=== PATIENT | female | born 1985 | race Hispanic/Latino ===

== ENCOUNTER 2019-06-08 19:30 | Inpatient (IN) | payer BC, OTHER ==
--- NOTE | 2019-06-08 13:26 | PDOC.LDHP ---
Labor and Delivery H&P Chief complaint: scheduled induction HPI: 34 yo @ 39w3d by 8 week CRL who presents for IOL due to AMA. Pt has mild anemia, otherwise benign antepartum course. Current gestational age (weeks): 39 Dating criteria: first trimester ultrasound Grav: 2 Para: 1 Abnormal US findings: No Current medications: pre-kalin vitamins Previous surgical history: none Allergies/Adverse Reactions: Allergies Allergy/AdvReac Type Severity Reaction Status Date / Time No Known Allergies Allergy Verified 06/08/19 20:08 Social history: none - Physical Exam General: NAD Heart: RRR Lungs: nonlabored breathing Abdomen: gravid Extremeties: no edema FHT: category 1 [place] contractions every: q2-5 + min; currently irregular - Vaginal Exam cm dilated: 5 (AROM clear- cephalic) Effacement: 75% Station: -1 - OB Labs Blood type: B RH: positive Antibody Screen: negative HIV: negative RPR: negative HEPSAg: negative 1 hour GCT: negative GBS: negative Urine drug screen: negative Rubella: immune Additional Labs: NIPT and msAFP wnl - Assessment 34 yo @ 39w3d AMA IOL Anemia - Plan Plan: admit to L&D, cervical ripening (s/p cytotec; now on pitocin.), informed consent obtained, anesthesia consult for pain management
[2019-06-08] MEDS ORDERED: Acetaminophen 500 MG TAB PO PRN (19:54)
[2019-06-08] MEDS ORDERED: Carboprost 250 MCG/ML AMP IM PRN (19:54)
[2019-06-08] MEDS ORDERED: HYDROcodone/Acetaminophen 5/325 mg Tablet PO PRN (19:54)
[2019-06-08] MEDS ORDERED: Promethazine HCl 25 MG/ML VIAL IM PRN (19:54)
[2019-06-08] MEDS ORDERED: Diphenoxylate HCl/Atropine Tablet PO PRN (19:54)
[2019-06-08] MEDS ORDERED: Ondansetron PF 4 MG/2 ML Vial IVP PRN (19:54)
[2019-06-08] MEDS ORDERED: Lidocaine 1% (PF) 30 ML VIAL SC PRN (19:54)
[2019-06-08] MEDS ORDERED: Methylergonovine 0.2 MG/ML VIAL IM PRN (19:54)
[2019-06-08] MEDS ORDERED: Ibuprofen 800 MG TAB PO PRN (19:54)
[2019-06-08] MEDS ORDERED: hydrALAZINE 20 MG/ML VIAL SLOW IVP PRN (19:54)
[2019-06-08] MEDS ORDERED: Misoprostol 200 MCG TAB PR PRN (19:54)
[2019-06-08] MEDS ORDERED: Butorphanol Tartrate 1 MG/ML VIAL SLOW IVP PRN (19:54)
[2019-06-08 20:18] VITALS: BMI 31.1
[2019-06-08] MEDS: Lactated Ringer's 1,000 ML IV SCH (20:21)
[2019-06-08 20:30] LABS: Hemoglobin 12.4 g/dL (12.0-16.0); Mean Corpuscular HGB CONC 34.5 g/dL (32.0-36.0); Mean Corpuscular Hemoglobin 27.8 pg (27.0-31.0); Mean Corpuscular Volume 80.4 fL (78.0-98.0); Mean Platelet Volume 7.1 fL (7.4-10.4); Platelet Count 284 thou/uL (130-400); RBC Distribution Width 15.2 % (11.5-14.5); Red Blood Cell (RBC) Count 4.46 mill/uL (4.20-5.40); White Blood Cell (WBC) Count 10.2 thou/uL (4.8-10.8)
[2019-06-08] MEDS: Misoprostol 100 MCG TAB VAG SCH (20:47)
[2019-06-08 21:08] LABS: Syphilis Antibody Nonreactive (Nonreactive); Syphilis Antibody Index 0.02 S/CO (<1.00 Non-Reactive)
[2019-06-08 23:43] LABS: HBSAg Index 0.28 S/CO (0-0.99); HIV (1/2) Antibody/Antigen Non-Reactive (NonReactive); HIV 1/2 INDEX 0.06 S/CO (<1.00); Hep B Surf Ag Non-Reactive S/CO (NonReactive)
[2019-06-09] MEDS: Lactated Ringer's 1,000 ML IV SCH ×2 (01:25→09:35)
[2019-06-09] MEDS ORDERED: NS w/ Oxytocin 10 units 500 ML IV SCH (06:00)
[2019-06-09] MEDS: NS / Oxytocin 40 units/1000ml 1,000 ML IV PRN ×2 (10:36→11:50)
--- NOTE | 2019-06-09 10:49 | PDOC.OPDEL ---
OB Operative/Delivery Note Delivery Dr/Surgeon: Berkley Turner DO Pre-Delivery Diagnosis: elective induction Procedure/Post Delivery Dx: spontaneous vaginal delivery Weeks gestation: 39 Anesthesia: none - Findings A Sex: male - 1 min: 8 - 5 min: 9 - Additional Findings/Plan Placenta delivered: spontaneous Repaired Obstetrical Laceration: right labial (also small abrasions that are hemostatic) Estimated blood loss: QBL 185 cc Compilations/Other Findings: in cephalic presentation DELMY position Nuchal x1 Normal appearing placenta Post delivery plan: routine recovery
[2019-06-09] MEDS ORDERED: Benzocaine-Menthol 82.5 ML CAN TOP PRN (13:59)
[2019-06-09] MEDS ORDERED: Methylergonovine 0.2 MG/ML VIAL IM PRN (13:59)
[2019-06-09] MEDS ORDERED: NS / Oxytocin 40 units/1000ml 1,000 ML IV SCH (13:59)
[2019-06-09] MEDS ORDERED: Milk Of Magnesia 30 ML UDCUP PO PRN (13:59)
[2019-06-09] MEDS ORDERED: Bisacodyl 10 MG SUPP PR PRN (13:59)
[2019-06-09] MEDS ORDERED: diphenhydrAMINE 25 MG CAP PO PRN (13:59)
[2019-06-09] MEDS ORDERED: hydrALAZINE 20 MG/ML VIAL SLOW IVP PRN (13:59)
[2019-06-09] MEDS ORDERED: Preparation H Ointment 28 GM TUBE PR PRN (13:59)
[2019-06-09] MEDS ORDERED: HYDROcodone/Acetaminophen 5/325 mg Tablet PO PRN (13:59)
[2019-06-09] MEDS: Misoprostol 100 MCG TAB VAG SCH ×2 (14:13→14:14)
[2019-06-09] MEDS: Ibuprofen 800 MG TAB PO SCH ×2 (14:39→20:47)
[2019-06-09] MEDS: Docusate Calcium (SURFAK) 240 MG CAP PO SCH (20:46)
[2019-06-10] MEDS: Ibuprofen 800 MG TAB PO SCH ×3 (04:09→21:12)
[2019-06-10 05:34] LABS: Hemoglobin 11.6 g/dL (12.0-16.0); Mean Corpuscular HGB CONC 32.5 g/dL (32.0-36.0); Mean Corpuscular Hemoglobin 27.1 pg (27.0-31.0); Mean Corpuscular Volume 83.5 fL (78.0-98.0); Mean Platelet Volume 7.1 fL (7.4-10.4); Platelet Count 279 thou/uL (130-400); RBC Distribution Width 15.2 % (11.5-14.5); Red Blood Cell (RBC) Count 4.27 mill/uL (4.20-5.40); White Blood Cell (WBC) Count 12.7 thou/uL (4.8-10.8)
--- NOTE | 2019-06-10 07:46 | PDOC.PP ---
Post Progress Note Post Day #: 1 Subjective: No concerns. Pain and lochia minimal. Breast and bottle feeding. Desires LC today. PO intake tolerated: yes Flatus: yes Ambulation: yes Vital Signs (12 hours) Temp Pulse Resp BP Pulse Ox 06/10/19 04:00 98.2 F 76 18 95/55 L 06/09/19 23:55 98.4 F 73 18 88/47 L 06/09/19 20:40 98.2 F 73 18 112/55 L 99 Weight Weight 170 lb - Physical Examination General: NAD Cardiovascular: RRR Respiratory: non-labored breathing Abdominal: no distention, appropriately TTP Fundus firm & at: at umbilicus Extremities: negative homans (B) Neurological: no gross focal deficits Psychiatric: A&Ox3, normal affect Result Diagrams: 06/10/19 05:22 Additional Labs: Post Labs Blood Type B POSITIVE 06/08/19 21:22 Hep Bs Antigen Non-Reactive S/CO (NonReactive) 06/08/19 20:22 - Assessment/Plan PPD1 VSSAF LC today. Continue PP care. Plan for d/c later today pending baby d/c.
[2019-06-10] MEDS: Lactated Ringer's 1,000 ML IV SCH ×3 (08:29→21:13)
[2019-06-10] MEDS: Prenatal Vitamin 1 TAB PO SCH (08:53)
[2019-06-10] MEDS: Docusate Calcium (SURFAK) 240 MG CAP PO SCH ×2 (08:54→21:12)
[2019-06-11] MEDS: Lactated Ringer's 1,000 ML IV SCH (05:35)
[2019-06-11 09:24] VITALS: BP 107/56; TEMP 98.9
[2019-06-11] MEDS: Ibuprofen 800 MG TAB PO SCH (09:50)
[2019-06-11] MEDS: Docusate Calcium (SURFAK) 240 MG CAP PO SCH (09:50)
[2019-06-11] MEDS: Prenatal Vitamin 1 TAB PO SCH (09:50)
--- NOTE | 2019-06-13 15:38 | DIS ---
DATE OF ADMISSION: 06/08/2019 DATE OF DISCHARGE: 06/11/2019 ADMITTING DIAGNOSES: 1. Intrauterine at 39 weeks gestation. 2. Elective induction of labor. 3. Advanced maternal age. DISCHARGE DIAGNOSES: 1. Intrauterine at 39 weeks gestation. 2. Elective induction of labor. 3. Advanced maternal age. PROCEDURE: Term spontaneous vaginal delivery. CONSULTATIONS: None. HOSPITAL COURSE: The patient is a 34-year-old female presenting at 39 weeks gestation for induction of labor, which resulted in a term spontaneous vaginal delivery. Hospital course has been uncomplicated. She is now day 2. She is reporting that she is tolerating p.o. well, voiding on her own, having decreased lochia, and good pain control. Her hemoglobin is 11.6, hematocrit 35.7. PHYSICAL EXAMINATION: VITAL SIGNS: Today, blood pressure is 126/68, pulse of 55, temperature 98.1, respiratory rate 18, saturating 98% on room air. GENERAL: She appears to be in no acute distress. She is alert, oriented, cooperative, and pleasant to interact with. HEENT: Head; normocephalic, atraumatic. FUNDUS: Firm. EXTREMITIES: Nontender, nonedematous. The patient is being discharged to home with ibuprofen for pain control. She has instructions to follow up with Dr. Turner in 6 weeks or sooner if she experiences fever, increasing pain, or bleeding. Job ID: [id number]
== END 2019-06-11 14:00 | disposition home or self-care (01) | DRG 807 ==
LOC: L&D 19:32 → 3SW 06-09 14:05
PROVIDERS: ADMIT Obstetrics & Gynecology; ATTEND Obstetrics & Gynecology
PROC: 10E0XZZ Delivery of Products of Conception, External Approach (ICD-10-PCS; principal; 2019-06-09)
PROC: 10907ZC Drainage of Amniotic Fluid, Therapeutic from Products of Conception, Via Natural or Artificial Opening (ICD-10-PCS; 2019-06-09)
PROC: 3E033VJ Introduction of Other Hormone into Peripheral Vein, Percutaneous Approach (ICD-10-PCS; 2019-06-09)
DX: O99.02 Anemia complicating childbirth (principal); Z37.0 Single live birth; D64.9 Anemia, unspecified; O69.81X0 Labor and delivery complicated by cord around neck, without compression, not applicable or unspecified; O70.0 First degree perineal laceration during delivery; Z3A.39 39 weeks gestation of pregnancy
CPT/HCPCS: 36415; 85027; 86780; 86850; 86900; 86901; 87340; 87389; J0595; J2001; J2590